=== PATIENT | female | born 1935 | race Caucasian/White ===

== ENCOUNTER → 2016-12-17 | Outpatient (CLI) | payer MEDICARE, BC ==
[~2016-12-17] MED LIST: ACETAMINOPHEN PO; BIOTIN1 M1 PO; COUMADIN PO; COUMADIN2.5 MG PO; DIGOXIN125 MCG PO; ENBREL50 MG/M1 SQ; ENBREL50 MG/ML PO; FOLIC ACID800 MCG PO; HUMIRA IM; KEFLEX PO; LANOXIN PO; LANOXIN125 MCG PO; LOPRESSOR PO; METHOTREXATE2.5 MG PO; PRAMIPEXOLE0.125 MG PO; SAMSCA15 MG PO; SYNTHROID PO; TAMBOCAR PO; TAMBOCOR150 MG PO; VITAMIN D-40400 UNIT PO; WARFARIN SODIU2.5 MG PO
--- NOTE | ~2016-12-17 | CT2 ---
[facility] A Service of [facility] RADIOLOGY TEXT RESULTS PATIENT: ZAKIA NAZARIO [facility] UNIT #: [id number] AGE: [address]: Thuy Waldron APRN SEX: F ORDER DR: [id number] [facility]. [place], [place] [address] [id number] O MR#: [id number] Acc #: [id number] NAME: ZAKIA NAZARIO : 1935 SEX: F STUDY DATE/TIME: 12/17/2016 13:53 UNIT: [facility] ROOM: STUDY DESCRIPTION: CT Abd and Pelv W Cont Attending Physician: Thuy Waldron Referring Physician: hTuy Waldron Primary Care Physician: Harrison Herzog M.D. MEDICAL IMAGING REPORT This report is preliminary unless electronic signature is present EXAM CT of the abdomen and pelvis with contrast INDICATIONS An 81-year-old female with bloating for 6 months and unexplained weight loss. TECHNIQUE CT of the abdomen and pelvis was performed following the administration of oral and IV contrast. Coronal and sagittal reformatted images obtained. Compared with 10/20/[address] exam was performed with one or more of the following radiation dose reduction techniques: automatic exposure control, adjustment of mA and/or kV according to patient size, and iterative reconstruction. FINDINGS The lung bases are clear. There is a small cysts in the liver. Gallbladder is unremarkable. The spleen is unremarkable. The kidneys are unremarkable. The adrenal glands and pancreas are unremarkable. Pelvis: There is a large amount of stool in the colon which may indicate constipation. No free fluid. Remainder of the pelvis unremarkable. Bone windows are demonstrate a right hip arthroplasty. IMPRESSION 1. Large amount of stool in the colon. This may indicate constipation. 2. Stable cyst in the liver. Dictated by... Bob Bond M.D. [facility] A Service of [facility] RADIOLOGY TEXT RESULTS PATIENT: ZAKIA NAZARIO [facility] 35 UNIT #: [id number] AGE: [address]: Thuy Waldron APRN SEX: F ORDER DR: THIS IS AN ELECTRONICALLY VERIFIED REPORT Bob Bond M.D. at 12/18/2016 8:08 AM Fernando TD: 12/17/2016 20:08 JOB #: [id number] MEDICAL IMAGING REPORT Page 1 of 1 COPY
[2016-12-17 13:21] LABS: POC - CREATININE 0.75 mg/dL (0.44-1.03); POC - GFR >60.0 mL/min (>60)
== END | disposition home or self-care (01) ==
LOC: CCAT 12:25
PROVIDERS: Nurse Practitioner Adult Health
DX: R63.4 Abnormal weight loss (principal); R19.5 Other fecal abnormalities; R14.0 Abdominal distension (gaseous); K76.89 Other specified diseases of liver; Z80.0 Family history of malignant neoplasm of digestive organs; Z88.2 Allergy status to sulfonamides
CPT/HCPCS: 74177; 82565; Q9967